=== PATIENT | female | born 2000 | race Hispanic/Latino ===

== ENCOUNTER 2023-07-24 04:26 | Inpatient (IN) | payer MEDICAID, OTHER ==
[2023-07-24] MEDS ORDERED: Diphenoxylate HCl/Atropine Tablet PO PRN (05:05)
[2023-07-24] MEDS ORDERED: Ondansetron PF 4 MG/2 ML Vial IVP PRN ×2 (05:05→14:53)
[2023-07-24] MEDS ORDERED: Promethazine HCl 25 MG/ML VIAL IM PRN (05:05)
[2023-07-24] MEDS ORDERED: Methylergonovine 0.2 MG/ML VIAL IM PRN (05:05)
[2023-07-24] MEDS ORDERED: Docusate 100 MG CAP PO PRN (05:05)
[2023-07-24] MEDS ORDERED: Misoprostol 200 MCG TAB PR PRN (05:05)
[2023-07-24] MEDS ORDERED: Ibuprofen 800 MG TAB PO PRN (05:05)
[2023-07-24] MEDS ORDERED: Tranexamic Acid 1,000 MG/10 ML VIAL IVP PRN (05:05)
[2023-07-24] MEDS ORDERED: Acetaminophen 500 MG TAB PO PRN (05:05)
[2023-07-24] MEDS ORDERED: hydrALAZINE 20 MG/ML VIAL SLOW IVP PRN ×2 (05:05→14:53)
[2023-07-24] MEDS ORDERED: Carboprost 250 MCG/ML AMP IM PRN (05:05)
[2023-07-24] MEDS: Lactated Ringer's 1,000 ML IV SCH (05:40)
[2023-07-24] MEDS: Penicillin G Potassium 5 MILL.UNITS in Sodium Chloride 0.9% 100 ML IVPB SCH (05:41)
[2023-07-24 06:01] LABS: Hematocrit 38.6 % (34.9-44.5); Hemoglobin 13.3 g/dL (12.0-15.5); Mean Corpuscular HGB CONC 34.5 g/dL (32.0-36.0); Mean Corpuscular Hemoglobin 33.2 pg (27.0-33.0); Mean Corpuscular Volume 96.3 fl (81.6-98.3); Mean Platelet Volume 13.2 fl (7.4-10.4); Platelet Count 145 10x3/uL (150-450); RBC Distribution Width 12.8 % (11.5-14.5); Red Blood Cell (RBC) Count 4.01 10x6/uL (3.90-5.03); White Blood Cell (WBC) Count 8.5 10x3/uL (3.5-10.5)
[2023-07-24] MEDS ORDERED: fentaNYL 50 mcg/mL 1 mL Vial SLOW IVP PRN (06:02)
[2023-07-24 06:15] VITALS: BMI 26.8
[2023-07-24 06:21] LABS: HBsAg Index 0.18 S/CO (0-0.99); Hep B Surf Ag - L&D Non-Reactive S/CO (NonReactive); Syphilis Antibody Nonreactive (Nonreactive); Syphilis Antibody Index 0.06 S/CO (<1.00 Non-Reactive)
[2023-07-24] MEDS: Penicillin G 2.5 MILL.units 2.5 MILL.UNITS in Premix 1 BAG IVPB SCH (09:19)
[2023-07-24] MEDS: Lidocaine 1% (PF) 30 ML VIAL SC PRN (12:14)
[2023-07-24] MEDS: Oxytocin 30 units/NS 500 ML 500 ML IV SCH ×2 (12:14→14:08)
[2023-07-24] MEDS ORDERED: Milk Of Magnesia 30 ML UDCUP PO PRN (14:53)
[2023-07-24] MEDS ORDERED: diphenhydrAMINE 25 MG CAP PO PRN (14:53)
[2023-07-24] MEDS ORDERED: Boostrix 0.5 ML (Tdap) VIAL (>/=7 yrs of age) IM ONE (14:53)
[2023-07-24] MEDS ORDERED: Bisacodyl 10 MG SUPP PR PRN (14:53)
[2023-07-24] MEDS: Ibuprofen 800 MG TAB PO SCH (16:32)
[2023-07-24] MEDS: Ferrous Sulfate 325 MG TAB PO SCH (18:23)
[2023-07-25] MEDS: Docusate 100 MG CAP PO SCH (07:24)
[2023-07-25] MEDS: Prenatal Vitamin 1 TAB PO SCH (08:49)
[2023-07-25] MEDS: Ibuprofen 800 MG TAB PO SCH (19:03)
[2023-07-26] MEDS ORDERED: Gentamicin 300 MG in Sodium Chloride 0.9% 100 ML IVPB SCH (07:30)
[2023-07-26] MEDS ORDERED: Clindamycin/D5W 900 MG in Premix 1 BAG IVPB SCH (08:00)
[2023-07-26 08:51] VITALS: BP 110/76; TEMP 97.9
== END 2023-07-26 16:29 | disposition home or self-care (01) | DRG 807 ==
LOC: CSHLD/OP 04:26 → CSHLD 05:20 → CSHPP 14:37
PROVIDERS: ADMIT Obstetrics & Gynecology; ATTEND Obstetrics & Gynecology
PROC: 10E0XZZ Delivery of Products of Conception, External Approach (ICD-10-PCS; principal; 2023-07-24)
PROC: 0UQMXZZ Repair Vulva, External Approach (ICD-10-PCS; 2023-07-24)
DX: O99.824 Streptococcus B carrier state complicating childbirth (principal); Z37.0 Single live birth; O70.0 First degree perineal laceration during delivery; Z3A.39 39 weeks gestation of pregnancy
CPT/HCPCS: 85027; 86780; 86850; 86900; 86901; 87340; 99285; J2001; J2540; J2590; J3490; J7120